=== PATIENT | female | born 1980 | race Asian ===

== ENCOUNTER 2017-03-09 19:11 | Emergency (ER) | payer OTHER ==
--- NOTE | 2017-03-09 19:14 | PDOC ---
History of Present Illness - General History Source: Patient Exam Limitations: No Limitations - History of Present Illness Initial Comments: 03/09/17 19:21 A portion of this note was documented by scribe services under my direction. I have reviewed the details of the note, within reason, and agree with the documentation. The case summary and management plan written by me. Procedure note Lacerations were cleaned with peroxide and closed with Dermabond patient tolerated well. Assessment and plan: This is a 36-year-old female who lacerated her right thumb and index finger when she reached up and her thumb and finger were hit by the blades of a fat fan. Patient said laceration occurred approximately 7 hours ago and she has had a Band-Aid on it since then. Patient said it bled a lot initially but has now stopped bleeding. Patient does not remember when her last tetanus is so she was given tetanus here in the emergency room. Patient given Dermabond discharge instructions and will follow-up with her doctor as needed. <Andrade Gay I - Last Filed: 03/09/17 19:28> - History of Present Illness Initial Comments: 03/09/17 19:30 The patient is a 36 year old female with no significant past medical history who presents to the Emergency Department with a right thumb and right index finger lacerations today approximately 7 hours ago. Patient reports that she lifted her arm and hit it against a moving ceiling fan. She reports associated bleeding at the site initially, and pain at the sites. She reports she bandaged it and bleeding subsided. She is unaware of her last tetanus shot. She denies any other complaints. PAST MEDICAL HISTORY: no significant history PAST SURGICAL HISTORY: no significant history FAMILY HISTORY: no pertinent history SOCIAL HISTORY: Pt lives with family and is employed. MEDICATIONS: reviewed ALLERGIES: As per nursing notes Review of Systems: General: No fevers or chills, no weakness, no weight loss HEENT: No change in vision. No sore throat,. No ear pain CardioVascular: No chest pain or shortness of breath Respiratory: No cough, or wheezing. Gastrointestinal: no nausea, vomiting, diarrhea or constipation, No rectal bleeding Genitourinary: No dysuria, hematuria, or frequency Musculoskeletal: No joint or muscle pain or swelling Neurologic: No headache, vertigo, dizziness or loss of consciousness Psychiatric: No depression Skin: + right thumb and right index finger lacerations. No rashes or easy bruising Endocrine: No increased thirst or abnormal weight change Allergic: No skin or latex allergy All other systems reviewed and normal BASIC EXAM: GENERAL: The patient is awake, alert, and fully oriented, in no acute distress. HEAD: Normal with no signs of trauma. EYES: Pupils equal, round and reactive to light, extraocular movements intact, sclera anicteric, conjunctiva clear. EXTREMITIES: Right thumb has a superficial laceration, approximately 2 cm, over the proximal phalanx. no active bleeding at this time, neurovascular intact. Right index finger superficial laceration, approximately 5 mm, over proximal phalanx medially, no active bleeding, neurovascular distal intact. Normal range of motion, no edema. NEUROLOGICAL: Normal speech, normal gait. PSYCH: Normal mood, normal affect. SKIN: Warm, Dry, normal turgor, no rashes or lesions noted. <Shahnaz Clayton A - Last Filed: 03/09/17 19:30> - General Chief Complaint: Injury Stated Complaint: LACERATIONS TO RIGHT THUMB/INDEX FINGER Time Seen by Provider: 03/09/17 19:14 Past History - Past Medical History Anemia: No Asthma: No Cancer: No Cardiac Disorders: No CVA: No COPD: No CHF: No Dementia: No Diabetes: No GI Disorders: No Disorders: No HTN: No Hypercholesterolemia: No Liver Disease: No Seizures: No Thyroid Disease: No - Surgical History Abdominal Surgery: No Appendectomy: No Cardiac Surgery: No Cholecystectomy: No Lung Surgery: No Neurologic Surgery: No Orthopedic Surgery: Yes (6 SCREWS/PLATE - RT WRIST) - Psycho/Social/Smoking Cessation Hx Anxiety: No Suicidal Ideation: No Smoking History: Current every day smoker Have you smoked in the past 12 months: Yes Number of Cigarettes Smoked Daily: 20 'Breaking Loose' booklet given: 07/17/15 Hx Alcohol Use: No Drug/Substance Use Hx: No Substance Use Type: None Hx Substance Use Treatment: No <Andrade Gay I - Last Filed: 03/09/17 19:28> <Shahnaz Clayton - Last Filed: 03/09/17 19:30> - Past Medical History Allergies/Adverse Reactions: Allergies Allergy/AdvReac Type Severity Reaction Status Date / Time oxycodone HCl [From Percocet] AdvReac Mild Vomiting Verified 03/09/17 19:13 Home Medications: Ambulatory Orders NK [No Known Home Medication] 03/09/17 *Physical Exam - Vital Signs Last Vital Signs Temp Pulse Resp BP Pulse Ox 98.1 F 76 18 128/56 98 03/09/17 19:20 03/09/17 19:20 03/09/17 19:20 03/09/17 19:20 03/09/17 19:20 <Shahnaz Clayton - Last Filed: 03/09/17 19:30> ED Treatment Course - Medications Given in the ED: ED Medications Discontinued Medications Generic Name Dose Route Start Last Admin Trade Name Britton PRN Reason Stop Dose Admin Diphtheria/Tetanus/Acell Pertussis 0.5 ml 03/09/17 19:24 03/09/17 19:28 Boostrix - IM 03/09/17 19:25 0.5 ml ONCE ONE Administration <Shahnaz Clayton - Last Filed: 03/09/17 19:30> *DC/Admit/Observation/Transfer - Discharge Dispostion Admit: No <Andrade Gay I - Last Filed: 03/09/17 19:28> - Attestations Scribe Attestion: 03/09/17 19:30 Documentation prepared by Shahnaz Clayton, acting as medical office secretary for Andrade Gay MD. <Shahnaz Clayton - Last Filed: 03/09/17 19:30> Diagnosis at time of Disposition: Laceration of right index finger Laceration of right thumb Qualifiers: Encounter type: initial encounter Qualified Code(s): S61.011A - Laceration without foreign body of right thumb without damage to nail, initial encounter - Discharge Dispostion Disposition: HOME Condition at time of disposition: Stable - Patient Instructions Printed Discharge Instructions: DI for Laceration Repair With Dermabond Additional Instructions: Read over and follow Dermabond instructions. Díaz points are keep the glue dry for the next 48 hours and do not use any lotions creams or ointments on it as any petroleum based products will cause the glue to come off too early. Return to the emergency department immediately with ANY new, persistent or worsening symptoms. Continue any medications as previously prescribed by your physician. You should follow up with your primary doctor as soon as possible regarding today's emergency department visit. . Please make sure your doctor reviews the results of your emergency evaluation. Thank you for coming to the Emergency Department today for your care. It was a pleasure to see you today. Please note that your evaluation is INCOMPLETE until you follow-up with your doctor.
[2017-03-09] MEDS ORDERED: DIPHTH,PERTUSS(ACELL),TET 0.5 ML DISP.SYRIN IM ONE (19:24)
[2017-03-09 19:25] VITALS: BP 128/56; PULSE 76; TEMP 98.1; BMI 24.2
== END 2017-03-09 19:49 | disposition home or self-care (01) ==
LOC: FER 19:11
PROC: 0HQFXZZ Repair Right Hand Skin, External Approach (ICD-10-PCS; principal; 2017-03-09)
DX: S61.011A Laceration without foreign body of right thumb without damage to nail, initial encounter (principal); S61.210A Laceration without foreign body of right index finger without damage to nail, initial encounter; W22.8XXA Striking against or struck by other objects, initial encounter; Y93.9 Activity, unspecified; Y92.9 Unspecified place or not applicable; F17.210 Nicotine dependence, cigarettes, uncomplicated
CPT/HCPCS: 12002-25; 90715; 99281-25

== ENCOUNTER 2018-02-26 13:10 | Emergency (ER) | payer OTHER ==
[2018-02-26 13:17] VITALS: BP 136/73; PULSE 95; TEMP 98.4; BMI 25.0
--- NOTE | 2018-02-26 14:11 | PDOC ---
History of Present Illness - General Chief Complaint: Respiratory Stated Complaint: COUGH Time Seen by Provider: 02/26/18 13:33 - History of Present Illness Initial Comments: 02/26/18 14:17 Chief complaint: Cough History of present illness: Long time cigarette smoker with persistent cough for 3 weeks. Worse at night with recumbency, interfering with sleep. Review of systems: Denies fever/chills, chest pain, shortness of breath, abdominal pain, nausea, vomiting, diarrhea, URI symptoms, sore throat. Remainder systems reviewed and found to be negative Past medical history: Healthy female with no active medical or surgical problems , one to 2 pack per day smoker. Social history: Denies alcohol or drugs. Family history: No family history of early coronary artery disease, lung disease including emphysema or asthma, diabetes or other metabolic diseases Physical exam: Alert and oriented well-developed well-nourished no acute distress cheerful and cooperative. Specifically, no tachypnea or dyspnea is apparent. Vital signs are normal including temperature, respiratory rate, and O2 saturation HEENT clear Neck supple without bruit mass or nodes Chest clear with full breath sounds throughout bilaterally. No wheezes rales or rhonchi CV S1 and S2 normal without murmur rub or gallop pulses full and symmetric no JVD or edema no bruits Abdomen soft nontender without mass or organomegaly Skin clear, no rash, adequate turgor and wet mucous membranes Extremities no CCE Neurological intact Impression: Persistent cough in a smoker without fever or shortness of breath. Normal respiratory rate and normal oxygen saturation. Most likely post bronchitic inflammation. Plan: Antibiotics and expectorant/cough suppressant. Highly encouraged to investigate smoking cessation strategies. Return to ER or see primary physician if fever or shortness of breath. Fully ambulatory and in no distress upon discharge to follow-up as recommended Past History - Past Medical History Allergies/Adverse Reactions: Allergies Allergy/AdvReac Type Severity Reaction Status Date / Time oxycodone HCl [From Percocet] AdvReac Mild Vomiting Verified 03/09/17 19:13 Home Medications: Ambulatory Orders Albuterol Sulfate Inhaler - [Ventolin HFA Inhaler -] 1 - 2 inh PO Q4H PRN #1 inhaler 02/26/18 Azithromycin [Zithromax 250mg Tablets -] 250 mg PO UTDICT #6 tab 02/26/18 Guaifenesin AC [Robitussin-AC] 1 - 2 tsp PO Q4HWA PRN #120 ml MDD 8 02/26/18 Anemia: No Asthma: No Cancer: No Cardiac Disorders: No CVA: No COPD: No CHF: No Dementia: No Diabetes: No GI Disorders: No Disorders: No HTN: No Hypercholesterolemia: No Liver Disease: No Seizures: No Thyroid Disease: No - Surgical History Abdominal Surgery: No Appendectomy: No Cardiac Surgery: No Cholecystectomy: No Lung Surgery: No Neurologic Surgery: No Orthopedic Surgery: Yes (6 SCREWS/PLATE - RT WRIST) - Immunization History Immunization Up to Date: No - Suicide/Smoking/Psychosocial Hx Smoking History: Current every day smoker Have you smoked in the past 12 months: Yes Number of Cigarettes Smoked Daily: 20 Information on smoking cessation initiated: Yes 'Breaking Loose' booklet given: 02/26/18 Hx Alcohol Use: No Drug/Substance Use Hx: No Substance Use Type: None Hx Substance Use Treatment: No *Physical Exam - Vital Signs Last Vital Signs Temp Pulse Resp BP Pulse Ox 98.4 F 95 H 18 136/73 100 02/26/18 13:10 02/26/18 13:10 02/26/18 13:10 02/26/18 13:10 02/26/18 13:10 *DC/Admit/Observation/Transfer Diagnosis at time of Disposition: Bronchitis - Discharge Dispostion Disposition: HOME Condition at time of disposition: Stable Admit: No - Prescriptions Prescriptions: Albuterol Sulfate Inhaler - [Ventolin HFA Inhaler -] 1 - 2 inh PO Q4H PRN #1 inhaler PRN Reason: Wheezing Azithromycin [Zithromax 250mg Tablets -] 250 mg PO UTDICT #6 tab Guaifenesin AC [Robitussin-AC] 1 - 2 tsp PO Q4HWA PRN #120 ml MDD 8 PRN Reason: Cough - Referrals Referrals: Gutierrez Patel MD [Staff Physician] - 1 week - Patient Instructions Printed Discharge Instructions: DI for Cough -- Adult, DI for Acute Bronchitis , Web and Computer Based Smoking Cessation Programs May Be Effective - Post Discharge Activity
== END 2018-02-26 14:15 | disposition home or self-care (01) ==
LOC: FER 13:10
DX: J40 Bronchitis, not specified as acute or chronic (principal); F17.210 Nicotine dependence, cigarettes, uncomplicated
CPT/HCPCS: 99283-25

== ENCOUNTER 2019-05-04 11:58 | Emergency (ER) | payer OTHER | END 2019-05-04 13:36 | disposition home or self-care (01) | LOC: FER 11:58 ==

== ENCOUNTER → 2019-09-27 | Day surgery (SDC) | payer OTHER ==
--- NOTE | 2019-09-28 12:40 | PATH ---
Surgical Pathology Report Patient Name: ERICK WEI [facility]. Rec. #: [id number] /Age/Gender: 1980 (Age: 39) / F Account: [id number] Location: [facility] Taken: 09/27/2019 Received: 09/27/2019 Reported: 09/28/2019 Physicians: Francis Mcfadden M.D. Specimen(s) Received A: RIGHT BREAST SPECIMEN - WITH CALCIFICATIONS B: RIGHT BREAST SPECIMEN - WITHOUT CALCIFICATIONS Clinical History Nonpalpable lesion Mammographic findings: Microcalcification, suspicious Final Diagnosis A. BREAST, RIGHT, WITH CALCIFICATIONS, STEREOTACTIC BIOPSY: BENIGN BREAST TISSUE SHOWING FIBROCYSTIC CHANGES INCLUDING CYSTIC APOCRINE METAPLASIA, MILD, USUAL DUCTAL TISSUE (UDH) AND STROMAL FIBROSIS. CALCIFICATIONS ARE PRESENT IN ASSOCIATION WITH CYST CONTENTS. B. BREAST, RIGHT, WITHOUT CALCIFICATIONS, STEREOTACTIC BIOPSY: BENIGN BREAST TISSUE SHOWING STROMAL FIBROSIS. Electronically Signed Laura Garcia M.D. Gross Description A. Received in formalin labeled "right breast with calcifications," are 5 choudhury-yellow, cylindrical portions of fibroadipose tissue ranging from 1.5-3.0 cm in length and averaging 0.3 cm in diameter. The specimens are submitted in toto in one cassette. B. Received in formalin labeled "right breast without calcifications," are 4 choudhury-yellow, cylindrical portions of fibroadipose tissue ranging from 0.7-1.8 cm in length and averaging 0.3 cm in diameter. The specimens are submitted in toto in one cassette. Time to formalin fixation: 4 minutes Total formalin fixation time: Approximately 7 hours. /09/27/2019 [facility]09/27/2019
== END | disposition home or self-care (01) ==
LOC: FMAMMOTONE 10:23
PROVIDERS: ATTEND Obstetrics & Gynecology
PROC: 0HBT3ZX Excision of Right Breast, Percutaneous Approach, Diagnostic (ICD-10-PCS; principal; 2019-09-27)
DX: N60.11 Diffuse cystic mastopathy of right breast (principal); N60.81 Other benign mammary dysplasias of right breast; N60.31 Fibrosclerosis of right breast; N64.89 Other specified disorders of breast; R92.1 Mammographic calcification found on diagnostic imaging of breast
CPT/HCPCS: 19081; 87899; A4648

== ENCOUNTER 2021-05-11 19:00 | Emergency (ER) | payer OTHER ==
[2021-05-11] MEDS ORDERED: ALBUTEROL SO4 2.5/IPRATROPIUM 0.5 INH SOL 3 ML VIAL.NEB. NEB ONE ×2 (19:22→20:08)
[2021-05-11 19:25] VITALS: TEMP 99.2; BMI 25.2
[2021-05-11 19:47] LABS: BASO % 1.6 % (0-2.0); EOS % 1.1 % (0-4.5); HEMATOCRIT 44.8 % (32.4-45.2); HEMOGLOBIN 15.7 GM/dl (10.7-15.3); LYMPH % 31.9 % (8-40); MCH 28.6 pg (25.7-33.7); MEAN CELL VOLUME 81.5 fl (80-96); MEAN PLT VOLUME 9.1 fl (7.5-11.1); MONO % 5.7 % (3.8-10.2); NEUT % 59.7 % (42.8-82.8); PLATELET COUNT 255 K/MM3 (134-434); WHITE BLOOD COUNT 9.4 K/mm3 (4.0-10.8)
[2021-05-11 19:52] LABS: GLUCOSE,RANDOM 109 mg/dl (74-106)
[2021-05-11 20:00] LABS: ALBUMIN 4.5 g/dl (3.4-5.0); ALK PHOS 53 U/L (45-117); ANION GAP 10 MMOL/L (8-16); BILIRUBIN,TOTAL 0.5 mg/dl (0.2-1); CALCIUM 9.2 mg/dl (8.5-10); CHLORIDE 106 mmol/L (98-107); CO2 25 mmol/L (21-32); CREATININE 0.9 mg/dl (0.55-1.3); PHOSPHOROUS 2.8 mg/dl (2.5-4.9); SGOT/AST 22 U/L (15-37); SGPT/ALT 30 U/L (13-61); SODIUM 141 mmol/L (136-145); TOT PROT 7.8 g/dl (6.4-8.2)
[2021-05-11 20:05] LABS: EPITHELIAL CELLS MODERATE /hpf; URINE MUCUS 1+
[2021-05-11 21:02] VITALS: BP 130/75; PULSE 92
== END 2021-05-11 21:08 | disposition home or self-care (01) ==
LOC: FER 19:00
PROC: 3E0F7GC Introduction of Other Therapeutic Substance into Respiratory Tract, Via Natural or Artificial Opening (ICD-10-PCS; principal; 2021-05-11)
DX: R05 Cough (principal); R06.2 Wheezing
CPT/HCPCS: 36415; 70450-TC; 71046-TC-FY; 72125-TC; 80053; 81003; 81015; 82550; 83735; 84100; 84484; 85025; 87086; 93005; 99285-25

== ENCOUNTER 2024-04-22 21:26 | Emergency (ER) | payer OTHER ==
[2024-04-22 21:36] VITALS: BP 134/78; PULSE 81; RESP 16; TEMP 99.6; BMI 25.2
== END 2024-04-22 22:56 | disposition home or self-care (01) ==
LOC: FER 21:26
DX: J40 Bronchitis, not specified as acute or chronic (principal); R05.9 Cough, unspecified; R06.2 Wheezing; R07.89 Other chest pain; Z20.822 Contact with and (suspected) exposure to COVID-19
CPT/HCPCS: 0241U-QW; 71046-TC-FY; 99284-25